=== PATIENT | female | born 1990 | race Caucasian/White ===

== ENCOUNTER 2017-12-05 01:31 | Inpatient (IN) ==
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
[2017-12-05 02:17] LABS: Basophils % 0.5 %; Eosinophils # 0.1 K/mcL (0.0-0.6); Eosinophils % 1.7 %; Hematocrit 36.6 % (35.3-44.9); Hemoglobin 12.6 g/dL (11.5-15.4); Immature Granulocytes % 0.4 % (0-4); Lymphocytes # 3.2 K/mcL (0.6-4.6); Lymphocytes % 41.9 %; Mean Corpuscular HGB Conc 34.4 g/dL (31.6-35.5); Mean Corpuscular Hemoglobin 31.8 pg (28.0-33.3); Mean Corpuscular Volume 92.4 fL (83.0-100.0); Mean Platelet Volume 9.8 fL (9.4-12.4); Monocytes # 0.4 K/mcL (0.0-1.3); Neutrophils # 3.9 K/mcL (1.6-8.9); Platelet Count 288 K/mcL (140-400); Red Blood Count 3.96 M/mcL (3.82-4.97); Segmented Neutrophils % 50.5 %
[2017-12-05 02:28] LABS: Alanine Aminotransferase 22 Units/L (7-52); Albumin 4.5 g/dL (3.5-5.7); Albumin/Globulin Ratio 1.7 (1.1-2.2); Alkaline Phosphatase 75 Units/L (34-104); Aspartate Amino Transferase 18 Units/L (13-39); BUN/Creatinine Ratio 9 (6-26); Bilirubin,Total 0.4 mg/dL (0.3-1.0); Blood Urea Nitrogen 6 mg/dL (6-20); Calcium 9.3 mg/dL (8.6-10.3); Carbon Dioxide 23 mEq/L (23-29); Chloride 107 mEq/L (98-107); Ethanol 173 mg/dL (Less than 10); Globulin 2.6 g/dL (2.4-3.5); Glucose 88 mg/dL (70-105); Osmolality,Calculated 287 (280-300); Potassium 3.7 mEq/L (3.5-5.1); Sodium 140 mEq/L (136-145); Total Protein 7.1 g/dL (6.4-8.9); eGFR For Non-African Americans > 60 (> 60)
[2017-12-05 03:06] LABS: Acetaminophen < 10 mcg/mL (10-20); Salicylate < 2.5 mg/dL (15.0-30.0)
[2017-12-05 04:39] LABS: Amphetamine Screen,Urine Negative ng/mL (Cutoff=1000); Barbiturate Screen,Urine Negative ng/mL (Cutoff=200); Benzodiazepines Screen,Urine Positive ng/mL (Cutoff=200); Cannabinoid Screen,Urine Negative ng/mL (Cutoff = 50); Cocaine Screen,Urine Negative ng/mL (Cutoff= 300); Opiate Screen,Urine Negative ng/mL (Cutoff=300); Phencyclidine Screen,Urine Negative ng/mL (Cutoff=25)
[2017-12-05] MEDS ORDERED: Ibuprofen 400 MG TABLET PO ONE (06:43)
[2017-12-05 07:06] LABS: Bilirubin,Urine Negative (Negative); Blood,Urine Negative (Negative); Clarity,Urine Cloudy (Clear); Color,Urine Yellow (Yellow); Glucose,Urine (UA) Normal (Normal); Ketones,Urine Negative (Negative); Leukocyte Esterase,Urine Small (Negative); Nitrite,Urine Negative (Negative); Protein,Urine Negative (Neg-Trace); Specific Gravity,Urine 1.006 (1.010-1.025); Urobilinogen,Urine Normal (Normal)
[2017-12-05 07:09] LABS: Bacteria,Urine Few per hpf (None-Few); Hyaline Casts,Urine Few per lpf (None-Few); RBC,Urine 0-3 per hpf (0-3); Squamous Epithelial Cell,Urine Many per lpf (None-Few)
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
[2017-12-05] MEDS ORDERED: MOM Conc 10 ML UD.LIQ PO PRN (12:56)
[2017-12-05] MEDS ORDERED: *HR* LORazepam 2 MG/ML VIAL IM PRN (12:56)
[2017-12-05] MEDS ORDERED: Mag Hydrox/Al Hydrox/Simeth 30 ML UDC PO PRN (12:56)
[2017-12-05] MEDS ORDERED: Haloperidol Lactate 5 MG/ML VIAL IM PRN (12:56)
[2017-12-05] MEDS ORDERED: Nicotine 21 MG PATCH.TD24 TD SCH (13:00)
[2017-12-05] MEDS: Nicotine 2 MG GUM BC PRN ×2 (17:08→20:57)
[2017-12-05] MEDS: *HR* LORazepam 1 MG TABLET PO PRN (20:57)
[2017-12-05] MEDS: hydrOXYzine pamoate 25 MG CAPSULE PO PRN (20:57)
[2017-12-05] MEDS: Ibuprofen 400 MG TABLET PO PRN (20:57)
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
[2017-12-06] MEDS: Nicotine 2 MG GUM BC PRN ×4 (10:35→20:34)
[2017-12-06] MEDS: Venlafaxine XR (24 HR) 150 MG CAP.ER.24H PO SCH (11:01)
[2017-12-06] MEDS: Ibuprofen 400 MG TABLET PO PRN ×2 (11:01→21:27)
[2017-12-06] MEDS: Gabapentin 100 MG CAPSULE PO SCH ×2 (11:01→20:34)
[2017-12-06] MEDS: hydrOXYzine pamoate 25 MG CAPSULE PO PRN (20:34)
[2017-12-06] MEDS: *HR* LORazepam 1 MG TABLET PO PRN (20:34)
[2017-12-07] MEDS: Nicotine 2 MG GUM BC PRN ×3 (09:07→15:04)
[2017-12-07] MEDS: Gabapentin 100 MG CAPSULE PO SCH (09:07)
[2017-12-07] MEDS: Venlafaxine XR (24 HR) 150 MG CAP.ER.24H PO SCH (09:07)
[2017-12-07 09:17] VITALS: BP 112/71
[2017-12-07] MEDS: Ibuprofen 400 MG TABLET PO PRN (09:45)
--- NOTE | 2017-12-07 14:50 | Psychiatry Progress Note ---
Date of Encounter: 12/07/17 Results - Vital Signs Vital Signs: Temp Pulse Resp BP Pulse Ox 98.4 F 88 16 112/71 98 12/07/17 09:00 12/07/17 09:00 12/07/17 09:00 12/07/17 09:00 12/05/17 01:36 Consult Discharge Plan - Plan Referrals: [facility] [place] [Outside] - 02/24/18 9:00 am (The above appointment is with Yohana Ceballos for outpatient psychiatric assessment and medication management services. Please arrive 15 minutes early to complete paperwork. Please bring your insurance card, photo ID and medications in their original bottles. If you do not have insurance, bring proof of income to apply for the sliding fee scale. If you are unable to keep this appointment, 24 hour business notice of cancellation is expected. The above appointment(s) reflects first availability. You may contact the office regularly to check for cancellations that may allow you to be seen sooner.) [facility] [Outside] - 12/16/17 9:30 am (The above appointment is with Cara Sotelo for primary health care and medication management services.) [facility] [Outside] - 12/15/17 8:00 am (To enroll in services, please walk in on Thursday at 8:00am. Bring your photo ID and proof that your Medicaid is pending. After your assessment, you will receive follow-up for continued one on one, group counseling and/or IOP services based on your needs.) Psychiatry Exam - Constitutional Vitals: Temp Pulse Resp BP Pulse Ox 98.4 F 88 16 112/71 98 12/07/17 09:00 12/07/17 09:00 12/07/17 09:00 12/07/17 09:00 12/05/17 01:36
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
== END 2017-12-07 16:35 | disposition home or self-care (01) | DRG 751 ==
LOC: EMEROOARM 01:31 → 1ANU 01:31 → SUATTDRO 12-06 10:40
PROVIDERS: ADMIT Psychiatry & Neurology Psychiatry; ATTEND Psychiatry & Neurology Forensic Psychiatry

== ENCOUNTER 2020-04-10 11:45 | Observation (INO) ==
[2020-04-10] MEDS ORDERED: 0.9 % Sodium Chloride 1,000 ML IVC ONE ×2 (11:57→15:24)
[2020-04-10] MEDS ORDERED: Ondansetron 4 MG/2 ML VIAL IVP ONE (11:57)
[2020-04-10] MEDS ORDERED: Isovue-370 500 ML BOTTLE IVP ONE (12:13)
[2020-04-10] MEDS ORDERED: Multivit/Ca/Min/Fe/FA 1 TAB TABLET PO SCH (12:15)
[2020-04-10 12:47] LABS: Prothrombin Time 11.9 Seconds (9.4-12.1)
[2020-04-10 12:48] LABS: Basophils # 0.1 K/mcL (0.0-0.2); Basophils % 0.5 %; Eosinophils # 0.1 K/mcL (0.0-0.6); Eosinophils % 0.9 %; Hematocrit 42.3 % (35.3-44.9); Immature Granulocytes % 0.4 % (0-4); Lymphocytes # 1.5 K/mcL (0.6-4.6); Lymphocytes % 14.2 %; Mean Corpuscular HGB Conc 35.5 g/dL (31.6-35.5); Mean Corpuscular Hemoglobin 33.2 pg (28.0-33.3); Mean Corpuscular Volume 93.6 fL (83.0-100.0); Mean Platelet Volume 9.7 fL (9.4-12.4); Monocytes # 0.6 K/mcL (0.0-1.3); Monocytes % 5.2 %; Neutrophils # 8.4 K/mcL (1.6-8.9); Platelet Count 276 K/mcL (140-400); Red Blood Count 4.52 M/mcL (3.82-4.97); Red Cell Distribution Width 13.5 % (11.5-14.5); Segmented Neutrophils % 78.8 %; White Blood Count 10.6 K/mcL (4.3-11.1)
[2020-04-10 13:02] LABS: Acetaminophen < 10 mcg/mL (10-20); Ethanol < 10 mg/dL (Less than 10); Salicylate < 2.5 mg/dL (15.0-30.0)
[2020-04-10 13:04] LABS: Alanine Aminotransferase 47 Units/L (7-52); Albumin 4.2 g/dL (3.5-5.7); Albumin/Globulin Ratio 1.5 (1.1-2.2); Alkaline Phosphatase 87 Units/L (34-104); Aspartate Amino Transferase 57 Units/L (13-39); BUN/Creatinine Ratio 6 (6-26); Bilirubin,Direct 0.1 mg/dL (0.0-0.2); Bilirubin,Indirect 0.4 mg/dL (0.0-1.0); Bilirubin,Total 0.5 mg/dL (0.3-1.0); Blood Urea Nitrogen 5 mg/dL (6-20); Calcium 9.8 mg/dL (8.6-10.3); Carbon Dioxide 29 mEq/L (23-29); Chloride 100 mEq/L (98-107); Globulin 2.8 g/dL (2.4-3.5); Glucose 91 mg/dL (70-105); Lipase 232 Units/L (11-82); Osmolality,Calculated 281 (280-300); Potassium 3.3 mEq/L (3.5-5.1); Sodium 137 mEq/L (136-145); Troponin I < 0.03 ng/mL (< 0.04); eGFR For African Americans > 60 (> 60); eGFR For Non-African Americans > 60 (> 60)
[2020-04-10] MEDS ORDERED: *HR* LORazepam 2 MG/ML VIAL IVP ONE (13:12)
[2020-04-10 13:51] LABS: Bacteria,Urine Few per hpf (None-Few); Bilirubin,Urine Negative (Negative); Blood,Urine Negative (Negative); Clarity,Urine Turbid (Clear); Color,Urine Yellow (Yellow); Glucose,Urine (UA) Normal (Normal); Hyaline Casts,Urine Moderate per lpf (None Seen); Ketones,Urine Negative (Negative); Leukocyte Esterase,Urine Moderate (Negative); Mucus,Urine Many per lpf (None-Few); Nitrite,Urine Negative (Negative); PH,Urine 6.5 pH Units (5.0-8.0); Protein,Urine Trace mg/dL (Neg-Trace); Specific Gravity,Urine 1.011 (1.010-1.025); Squamous Epithelial Cell,Urine Moderate per hpf (None-Few); Urobilinogen,Urine Normal (Normal)
[2020-04-10 14:06] LABS: Amphetamine Screen,Urine Positive ng/mL (Cutoff=1000); Barbiturate Screen,Urine Negative ng/mL (Cutoff=200); Benzodiazepines Screen,Urine Negative ng/mL (Cutoff=200); Cannabinoid Screen,Urine Negative ng/mL (Cutoff = 50); Cocaine Screen,Urine Negative ng/mL (Cutoff= 300); Opiate Screen,Urine Negative ng/mL (Cutoff=300); Phencyclidine Screen,Urine Negative ng/mL (Cutoff=25)
[2020-04-10] MEDS ORDERED: Piperacillin/Tazobactam 3.375 GM in 0.9 % Sodium Chloride Mini Bag 100 ML IVPB ONE (14:09)
[2020-04-10] MEDS ORDERED: *HR* LORazepam 2 MG/ML VIAL IVP PRN ×2 (15:26)
[2020-04-10] MEDS ORDERED: Ondansetron 4 MG/2 ML VIAL IVP PRN (15:28)
[2020-04-10] MEDS ORDERED: Naloxone 0.4 MG/ML INJ IVP PRN (15:28)
[2020-04-10] MEDS ORDERED: 0.9 % Sodium Chloride 1,000 ML IVC SCH (15:30)
[2020-04-10] MEDS: Thiamine (B-1) 200 MG in 0.9 % Sodium Chloride 50 ML IVPB SCH (16:45)
[2020-04-10] MEDS: Folic Acid 1 MG in 0.9 % Sodium Chloride 50 ML IVPB SCH (18:03)
[2020-04-10] MEDS: *HR* LORazepam 2 MG/ML VIAL IVP PRN (20:17)
[2020-04-10] MEDS: Nicotine 14 MG PATCH.TD24 TD SCH (20:17)
[2020-04-11] MEDS: *HR* LORazepam 2 MG/ML VIAL IVP PRN (02:27)
[2020-04-11] MEDS: Piperacillin/Tazobactam 3.375 GM in 0.9 % Sodium Chloride Mini Bag 100 ML IVPB SCH ×2 (02:28→08:21)
[2020-04-11 03:47] LABS: Basophils % 0.6 %; Eosinophils # 0.3 K/mcL (0.0-0.6); Eosinophils % 3.9 %; Hematocrit 39.1 % (35.3-44.9); Immature Granulocytes % 0.5 % (0-4); Lymphocytes # 1.9 K/mcL (0.6-4.6); Lymphocytes % 29.4 %; Mean Corpuscular HGB Conc 33.2 g/dL (31.6-35.5); Mean Corpuscular Hemoglobin 31.9 pg (28.0-33.3); Mean Corpuscular Volume 95.8 fL (83.0-100.0); Mean Platelet Volume 9.7 fL (9.4-12.4); Monocytes # 0.4 K/mcL (0.0-1.3); Monocytes % 5.4 %; Neutrophils # 3.9 K/mcL (1.6-8.9); Nucleated Red Blood Cells 0.3 /100 WBC (0); Platelet Count 227 K/mcL (140-400); Red Blood Count 4.08 M/mcL (3.82-4.97); Red Cell Distribution Width 13.5 % (11.5-14.5); Segmented Neutrophils % 60.2 %; White Blood Count 6.5 K/mcL (4.3-11.1)
[2020-04-11 03:54] LABS: Prothrombin Time 11.4 Seconds (9.4-12.1)
[2020-04-11 04:05] LABS: Chol/HDL Ratio 1.9 (0-4.9)
[2020-04-11 04:06] LABS: Alanine Aminotransferase 34 Units/L (7-52); Albumin 3.6 g/dL (3.5-5.7); Albumin/Globulin Ratio 1.6 (1.1-2.2); Alkaline Phosphatase 75 Units/L (34-104); Aspartate Amino Transferase 38 Units/L (13-39); BUN/Creatinine Ratio 11 (6-26); Bilirubin,Direct 0.1 mg/dL (0.0-0.2); Bilirubin,Indirect 0.6 mg/dL (0.0-1.0); Bilirubin,Total 0.7 mg/dL (0.3-1.0); Blood Urea Nitrogen 10 mg/dL (6-20); Calcium 8.5 mg/dL (8.6-10.3); Carbon Dioxide 27 mEq/L (23-29); Chloride 105 mEq/L (98-107); Globulin 2.2 g/dL (2.4-3.5); Glucose 93 mg/dL (70-105); Magnesium 1.5 mg/dL (1.6-2.6); Osmolality,Calculated 283 (280-300); Phosphorous 3.4 mg/dL (2.7-4.5); Potassium 3.4 mEq/L (3.5-5.1); Sodium 137 mEq/L (136-145); Total Protein 5.8 g/dL (6.4-8.9); eGFR For African Americans > 60 (> 60); eGFR For Non-African Americans > 60 (> 60)
[2020-04-11] MEDS ORDERED: Isovue-370 500 ML BOTTLE IVP ONE (05:22)
[2020-04-11] MEDS ORDERED: *HR* HYDROmorphone (PF) 1 MG/ML SYRINGE IVP ONE (05:25)
[2020-04-11] MEDS ORDERED: Ringers Solution, Lactated 1,000 ML IVC SCH (05:30)
[2020-04-11] MEDS: Nicotine 14 MG PATCH.TD24 TD SCH (08:20)
[2020-04-11] MEDS: Folic Acid 1 MG in 0.9 % Sodium Chloride 50 ML IVPB SCH (08:20)
[2020-04-11] MEDS: Thiamine (B-1) 200 MG in 0.9 % Sodium Chloride 50 ML IVPB SCH (08:22)
[2020-04-11] MEDS ORDERED: Magnesium Sulfate 1 GM/102 ML PIGGYBACK IVPB ONE (08:28)
[2020-04-11 10:38] VITALS: BP 140/88
== END 2020-04-11 12:10 | disposition short-term general hospital (02) ==
LOC: EMEROOARM 11:45 → 3BNU 11:45
PROVIDERS: ADMIT Internal Medicine; ATTEND Internal Medicine

== ENCOUNTER 2021-01-09 19:09 | Inpatient (IN) ==
[2021-01-09 21:36] LABS: Hematocrit 31.5 % (35.3-44.9); Hemoglobin 10.9 g/dL (11.5-15.4); Mean Corpuscular HGB Conc 34.6 g/dL (31.6-35.5); Mean Corpuscular Hemoglobin 30.7 pg (28.0-33.3); Mean Corpuscular Volume 88.7 fL (83.0-100.0); Mean Platelet Volume 9.6 fL (9.4-12.4); Platelet Count 363 K/mcL (140-400); Red Blood Count 3.55 M/mcL (3.82-4.97); Red Cell Distribution Width 12.2 % (11.5-14.5); White Blood Count 21.4 K/mcL (4.3-11.1)
[2021-01-09 21:50] LABS: BUN/Creatinine Ratio 8 (6-26); Blood Urea Nitrogen 5 mg/dL (6-20); Calcium 8.6 mg/dL (8.6-10.3); Carbon Dioxide 26 mEq/L (23-29); Chloride 100 mEq/L (98-107); Glucose 97 mg/dL (70-105); Osmolality,Calculated 279 (280-300); Potassium 2.7 mEq/L (3.5-5.1); Sodium 136 mEq/L (136-145); eGFR For African Americans > 60 (> 60); eGFR For Non-African Americans > 60 (> 60)
[2021-01-09] MEDS ORDERED: Vancomycin 1,500 MG/265 ML IV.SOLN IVPB ONE (22:45)
[2021-01-09] MEDS ORDERED: 0.9 % Sodium Chloride 1,000 ML IVC ONE (22:48)
[2021-01-09] MEDS ORDERED: *HR* LORazepam 2 MG/ML VIAL IVP ONE (22:48)
[2021-01-09 22:58] LABS: Alanine Aminotransferase 13 Units/L (7-52); Albumin 3.8 g/dL (3.5-5.7); Albumin/Globulin Ratio 1.3 (1.1-2.2); Alkaline Phosphatase 103 Units/L (34-104); Aspartate Amino Transferase 14 Units/L (13-39); Bilirubin,Indirect 0.3 mg/dL (0.0-1.0); Bilirubin,Total 0.3 mg/dL (0.3-1.0); Total Protein 6.8 g/dL (6.4-8.9)
[2021-01-09] MEDS ORDERED: Cefepime HCl 1,000 MG in Water for inj. (sterile) 10 ML IVP ONE (23:00)
[2021-01-10 00:17] LABS: Bacteria,Urine Few per hpf (None-Few); Bilirubin,Urine Negative (Negative); Blood,Urine Negative (Negative); Clarity,Urine Turbid (Clear); Color,Urine Yellow (Yellow); Glucose,Urine (UA) Normal (Normal); Ketones,Urine Negative (Negative); Leukocyte Esterase,Urine Large (Negative); Mucus,Urine Few per lpf (None-Few); Nitrite,Urine Negative (Negative); PH,Urine 6.5 pH Units (5.0-8.0); Protein,Urine 30 mg/dL (Neg-Trace); RBC,Urine 0-3 per hpf (0-3); Specific Gravity,Urine 1.023 (1.010-1.025); Squamous Epithelial Cell,Urine Moderate per hpf (None-Few); Urobilinogen,Urine Normal (Normal)
[2021-01-10 00:46] LABS: Magnesium 1.4 mg/dL (1.6-2.6)
[2021-01-10] MEDS ORDERED: 0.9 % Sodium Chloride 1,000 ML IVC ONE (01:12)
[2021-01-10] MEDS ORDERED: Ondansetron 4 MG/2 ML VIAL IVP PRN (01:29)
[2021-01-10] MEDS ORDERED: Naloxone 0.4 MG/ML INJ IVP PRN (01:29)
[2021-01-10] MEDS: *HR* LORazepam 2 MG/ML VIAL IVP PRN ×7 (02:33→23:39)
[2021-01-10] MEDS ORDERED: 0.9 % Sodium Chloride 500 ML IVC ONE ×2 (03:01→14:56)
[2021-01-10] MEDS ORDERED: Ringers Solution, Lactated 1,000 ML IVC ONE (03:02)
[2021-01-10 05:20] LABS: Eosinophils % 0.6 %; Mean Platelet Volume 9.8 fL (9.4-12.4); Red Cell Distribution Width 12.4 % (11.5-14.5)
[2021-01-10 05:21] LABS: Basophils # 0.1 K/mcL (0.0-0.2); Basophils % 0.2 %; Eosinophils # 0.2 K/mcL (0.0-0.6); Hematocrit 27.5 % (35.3-44.9); Hemoglobin 9.3 g/dL (11.5-15.4); Immature Granulocytes % 0.5 % (0-4); Lymphocytes % 11.4 %; Mean Corpuscular HGB Conc 33.8 g/dL (31.6-35.5); Mean Corpuscular Hemoglobin 30.7 pg (28.0-33.3); Mean Corpuscular Volume 90.8 fL (83.0-100.0); Monocytes % 5.5 %; Neutrophils # 21.5 K/mcL (1.6-8.9); Platelet Count 341 K/mcL (140-400); Red Blood Count 3.03 M/mcL (3.82-4.97); Segmented Neutrophils % 81.8 %; White Blood Count 26.3 K/mcL (4.3-11.1)
[2021-01-10 05:25] LABS: Monocytes # 1.5 K/mcL (0.0-1.3)
[2021-01-10 05:38] LABS: Alanine Aminotransferase 9 Units/L (7-52); Albumin 2.8 g/dL (3.5-5.7); Albumin/Globulin Ratio 1.2 (1.1-2.2); Alkaline Phosphatase 79 Units/L (34-104); Aspartate Amino Transferase 10 Units/L (13-39); BUN/Creatinine Ratio 17 (6-26); Bilirubin,Total 0.5 mg/dL (0.3-1.0); Blood Urea Nitrogen 9 mg/dL (6-20); Calcium 7.4 mg/dL (8.6-10.3); Carbon Dioxide 25 mEq/L (23-29); Chloride 109 mEq/L (98-107); Globulin 2.4 g/dL (2.4-3.5); Glucose 122 mg/dL (70-105); Magnesium 1.4 mg/dL (1.6-2.6); Osmolality,Calculated 288 (280-300); Phosphorous 2.1 mg/dL (2.7-4.5); Potassium 3.3 mEq/L (3.5-5.1); Sodium 139 mEq/L (136-145); Total Protein 5.2 g/dL (6.4-8.9); eGFR For African Americans > 60 (> 60); eGFR For Non-African Americans > 60 (> 60)
[2021-01-10] MEDS: *HR* Enoxaparin 40 MG/0.4 ML SYRINGE SQ SCH (05:43)
[2021-01-10 05:44] LABS: Platelet Estimate Normal (Normal)
[2021-01-10] MEDS: Piperacillin/Tazobactam 3.375 GM in 0.9 % Sodium Chloride Mini Bag 100 ML IVPB SCH ×2 (07:47→18:35)
[2021-01-10] MEDS ORDERED: Acetaminophen 325 MG TABLET PO PRN (08:27)
[2021-01-10] MEDS: 0.9 % Sodium Chloride 1,000 ML IVC SCH (10:54)
[2021-01-10] MEDS: Magnesium Oxide 400 MG TABLET PO SCH (10:55)
[2021-01-10] MEDS: Vancomycin 1,500 MG/265 ML IV.SOLN IVPB SCH (13:28)
[2021-01-10] MEDS ORDERED: 0.9 % Sodium Chloride 250 ML ONE (21:17)
[2021-01-10] MEDS: Dexmedetomidine HCl 400 MCG/100 ML MLS IVC SCH (21:33)
[2021-01-11] MEDS: Thiamine (B-1) 100 MG, Folic Acid 1 MG, MVI, adult with vitamin K 10 ML in 0.9 % Sodi... IVPB SCH ×2 (00:03→17:29)
[2021-01-11] MEDS: 0.9 % Sodium Chloride 1,000 ML IVC SCH (00:47)
[2021-01-11] MEDS: Piperacillin/Tazobactam 3.375 GM in 0.9 % Sodium Chloride Mini Bag 100 ML IVPB SCH ×4 (00:48→23:37)
[2021-01-11] MEDS: Vancomycin 1,500 MG/265 ML IV.SOLN IVPB SCH ×3 (02:21→23:37)
[2021-01-11] MEDS: Dexmedetomidine HCl 400 MCG/100 ML MLS IVC SCH ×3 (02:43→14:25)
[2021-01-11 05:42] LABS: Basophils # 0.1 K/mcL (0.0-0.2); Basophils % 0.4 %; Eosinophils # 0.5 K/mcL (0.0-0.6); Eosinophils % 3.4 %; Hemoglobin 8.7 g/dL (11.5-15.4); Immature Granulocytes % 0.7 % (0-4); Lymphocytes # 3.3 K/mcL (0.6-4.6); Mean Corpuscular HGB Conc 33.5 g/dL (31.6-35.5); Mean Corpuscular Volume 92.5 fL (83.0-100.0); Mean Platelet Volume 9.8 fL (9.4-12.4); Monocytes # 0.5 K/mcL (0.0-1.3); Monocytes % 3.6 %; Neutrophils # 9.3 K/mcL (1.6-8.9); Platelet Count 315 K/mcL (140-400); Red Blood Count 2.81 M/mcL (3.82-4.97); Red Cell Distribution Width 12.6 % (11.5-14.5); Segmented Neutrophils % 67.9 %; White Blood Count 13.7 K/mcL (4.3-11.1)
[2021-01-11] MEDS: *HR* Enoxaparin 40 MG/0.4 ML SYRINGE SQ SCH (05:44)
[2021-01-11 06:03] LABS: BUN/Creatinine Ratio 20 (6-26); Blood Urea Nitrogen 11 mg/dL (6-20); Calcium 7.8 mg/dL (8.6-10.3); Carbon Dioxide 24 mEq/L (23-29); Chloride 110 mEq/L (98-107); Glucose 136 mg/dL (70-105); Magnesium 1.7 mg/dL (1.6-2.6); Osmolality,Calculated 289 (280-300); Phosphorous 2.4 mg/dL (2.7-4.5); Potassium 3.6 mEq/L (3.5-5.1); Sodium 139 mEq/L (136-145); eGFR For African Americans > 60 (> 60); eGFR For Non-African Americans > 60 (> 60)
[2021-01-11] MEDS: Magnesium Oxide 400 MG TABLET PO SCH (09:41)
[2021-01-11 11:59] LABS: Adenovirus Not Detected (Not Detect); Coronavirus 229E Not Detected (Not Detect); Coronavirus HKU1 Not Detected (Not Detect); Coronavirus NL63 Not Detected (Not Detect); Coronavirus OC43 Not Detected (Not Detect); Human Metapneumovirus Not Detected (Not Detect); Human Rhinovirus/Enterovirus DETECTED (Not Detect); Influenza A Subtype 2009 H1 Not Detected (Not Detect); Influenza B Not Detected (Not Detect); Parainfluenza Virus 1 Not Detected (Not Detect); Parainfluenza Virus 2 Not Detected (Not Detect); Parainfluenza Virus 3 Not Detected (Not Detect); Parainfluenza Virus 4 Not Detected (Not Detect); Respiratory Syncytial Virus Not Detected (Not Detect); SARS-CoV-2 Not Detected (Not Detect)
[2021-01-11 12:00] LABS: Bordetella Pertussis Not Detected (Not Detect); Chlamydophila pneumoniae Not Detected (Not Detect); Mycoplasma pneumoniae Not Detected (Not Detect)
[2021-01-11 13:20] LABS: Amphetamine Screen,Urine Positive ng/mL (Cutoff=1000); Barbiturate Screen,Urine Negative ng/mL (Cutoff=200); Benzodiazepines Screen,Urine Positive ng/mL (Cutoff=200); Cannabinoid Screen,Urine Negative ng/mL (Cutoff = 50); Cocaine Screen,Urine Negative ng/mL (Cutoff= 300); Opiate Screen,Urine Negative ng/mL (Cutoff=300); Phencyclidine Screen,Urine Negative ng/mL (Cutoff=25)
[2021-01-11] MEDS: Nicotine 21 MG PATCH.TD24 TD SCH (13:48)
[2021-01-11] MEDS: Acetaminophen 325 MG TABLET PO PRN ×2 (14:30→23:37)
[2021-01-11] MEDS: *HR* LORazepam 2 MG/ML VIAL IVP PRN ×2 (14:31→21:51)
[2021-01-11] MEDS: *HR* OxyCODONE/APAP 5/325 TABLET PO PRN (17:28)
[2021-01-11] MEDS: Gabapentin 400 MG CAPSULE PO SCH (21:16)
[2021-01-11] MEDS: rOPINIRole 1 MG TABLET PO SCH (21:16)
[2021-01-12] MEDS: Dexmedetomidine HCl 400 MCG/100 ML MLS IVC SCH ×2 (00:56→17:18)
[2021-01-12 05:22] LABS: Basophils # 0.1 K/mcL (0.0-0.2); Basophils % 0.5 %; Eosinophils # 0.4 K/mcL (0.0-0.6); Eosinophils % 3.8 %; Hematocrit 25.9 % (35.3-44.9); Hemoglobin 8.4 g/dL (11.5-15.4); Immature Granulocytes % 0.8 % (0-4); Lymphocytes # 2.1 K/mcL (0.6-4.6); Lymphocytes % 22.5 %; Mean Corpuscular HGB Conc 32.4 g/dL (31.6-35.5); Mean Corpuscular Volume 92.5 fL (83.0-100.0); Mean Platelet Volume 10.3 fL (9.4-12.4); Monocytes # 0.5 K/mcL (0.0-1.3); Monocytes % 5.8 %; Neutrophils # 6.1 K/mcL (1.6-8.9); Platelet Count 353 K/mcL (140-400); Red Cell Distribution Width 12.7 % (11.5-14.5); Segmented Neutrophils % 66.6 %; White Blood Count 9.2 K/mcL (4.3-11.1)
[2021-01-12 05:36] LABS: BUN/Creatinine Ratio 11 (6-26); Blood Urea Nitrogen 10 mg/dL (6-20); Calcium 7.9 mg/dL (8.6-10.3); Carbon Dioxide 25 mEq/L (23-29); Chloride 109 mEq/L (98-107); Glucose 94 mg/dL (70-105); Magnesium 1.7 mg/dL (1.6-2.6); Osmolality,Calculated 287 (280-300); Phosphorous 3.8 mg/dL (2.7-4.5); Potassium 3.4 mEq/L (3.5-5.1); Sodium 139 mEq/L (136-145); eGFR For African Americans > 60 (> 60); eGFR For Non-African Americans > 60 (> 60)
[2021-01-12] MEDS: *HR* Enoxaparin 40 MG/0.4 ML SYRINGE SQ SCH (05:50)
[2021-01-12] MEDS: Nicotine 21 MG PATCH.TD24 TD SCH (07:36)
[2021-01-12] MEDS: BuPROPion XL (24 HR) 150 MG TABLET PO SCH (07:36)
[2021-01-12] MEDS: Gabapentin 400 MG CAPSULE PO SCH ×3 (07:36→20:12)
[2021-01-12] MEDS: rOPINIRole 1 MG TABLET PO SCH ×2 (07:37→20:11)
[2021-01-12] MEDS: Magnesium Oxide 400 MG TABLET PO SCH (07:37)
[2021-01-12] MEDS: Piperacillin/Tazobactam 3.375 GM in 0.9 % Sodium Chloride Mini Bag 100 ML IVPB SCH ×3 (07:37→23:44)
[2021-01-12] MEDS: Venlafaxine XR (24 HR) 150 MG CAP.ER.24H PO SCH (07:37)
[2021-01-12] MEDS: Acetaminophen 325 MG TABLET PO PRN (07:37)
[2021-01-12] MEDS: Vancomycin 1,500 MG/265 ML IV.SOLN IVPB SCH (11:29)
[2021-01-12] MEDS: *HR* OxyCODONE/APAP 5/325 TABLET PO PRN (14:40)
[2021-01-12] MEDS: Thiamine (B-1) 100 MG, Folic Acid 1 MG, MVI, adult with vitamin K 10 ML in 0.9 % Sodi... IVPB SCH (17:13)
[2021-01-12] MEDS: *HR* LORazepam 2 MG/ML VIAL IVP PRN (20:12)
[2021-01-13] MEDS: Vancomycin 1,250 MG/262.5 ML IV.SOLN IVPB SCH ×2 (00:04→12:18)
[2021-01-13] MEDS: *HR* OxyCODONE/APAP 5/325 TABLET PO PRN ×2 (02:22→13:23)
[2021-01-13] MEDS: *HR* LORazepam 2 MG/ML VIAL IVP PRN ×3 (03:46→22:34)
[2021-01-13 04:31] LABS: Basophils # 0.1 K/mcL (0.0-0.2); Basophils % 0.7 %; Eosinophils # 0.3 K/mcL (0.0-0.6); Eosinophils % 4.5 %; Hematocrit 25.6 % (35.3-44.9); Hemoglobin 8.3 g/dL (11.5-15.4); Immature Granulocytes % 0.9 % (0-4); Lymphocytes # 2.4 K/mcL (0.6-4.6); Lymphocytes % 31.8 %; Mean Corpuscular HGB Conc 32.4 g/dL (31.6-35.5); Mean Corpuscular Hemoglobin 30.4 pg (28.0-33.3); Mean Corpuscular Volume 93.8 fL (83.0-100.0); Mean Platelet Volume 10.2 fL (9.4-12.4); Monocytes # 0.4 K/mcL (0.0-1.3); Monocytes % 5.6 %; Neutrophils # 4.3 K/mcL (1.6-8.9); Platelet Count 321 K/mcL (140-400); Red Blood Count 2.73 M/mcL (3.82-4.97); Red Cell Distribution Width 12.8 % (11.5-14.5); Segmented Neutrophils % 56.5 %; White Blood Count 7.6 K/mcL (4.3-11.1)
[2021-01-13 04:51] LABS: BUN/Creatinine Ratio 9 (6-26); Blood Urea Nitrogen 10 mg/dL (6-20); Carbon Dioxide 25 mEq/L (23-29); Chloride 108 mEq/L (98-107); Glucose 127 mg/dL (70-105); Magnesium 1.7 mg/dL (1.6-2.6); Osmolality,Calculated 287 (280-300); Phosphorous 3.6 mg/dL (2.7-4.5); Potassium 3.6 mEq/L (3.5-5.1); Sodium 138 mEq/L (136-145); eGFR For African Americans > 60 (> 60); eGFR For Non-African Americans 56 (> 60)
[2021-01-13] MEDS: *HR* Enoxaparin 40 MG/0.4 ML SYRINGE SQ SCH (06:02)
[2021-01-13] MEDS: Dexmedetomidine HCl 400 MCG/100 ML MLS IVC SCH (09:06)
[2021-01-13] MEDS: Piperacillin/Tazobactam 3.375 GM in 0.9 % Sodium Chloride Mini Bag 100 ML IVPB SCH ×2 (09:08→16:07)
[2021-01-13] MEDS: rOPINIRole 1 MG TABLET PO SCH ×2 (09:09→20:16)
[2021-01-13] MEDS: Venlafaxine XR (24 HR) 150 MG CAP.ER.24H PO SCH (09:09)
[2021-01-13] MEDS: Gabapentin 400 MG CAPSULE PO SCH ×3 (09:09→20:16)
[2021-01-13] MEDS: BuPROPion XL (24 HR) 150 MG TABLET PO SCH (09:09)
[2021-01-13] MEDS: Magnesium Oxide 400 MG TABLET PO SCH (09:10)
[2021-01-13] MEDS: Nicotine 21 MG PATCH.TD24 TD SCH (09:11)
[2021-01-13] MEDS ORDERED: Isovue-370 500 ML BOTTLE IVP ONE (09:58)
[2021-01-13] MEDS ORDERED: 0.9 % Sodium Chloride 1,000 ML IVC SCH (11:00)
[2021-01-13] MEDS ORDERED: QUEtiapine Fumarate 25 MG TABLET PO SCH (21:00)
[2021-01-14] MEDS: Piperacillin/Tazobactam 3.375 GM in 0.9 % Sodium Chloride Mini Bag 100 ML IVPB SCH ×4 (00:32→23:34)
[2021-01-14] MEDS: Vancomycin 1,250 MG/262.5 ML IV.SOLN IVPB SCH (01:15)
[2021-01-14] MEDS: Dexmedetomidine HCl 400 MCG/100 ML MLS IVC SCH (01:47)
[2021-01-14] MEDS: *HR* OxyCODONE/APAP 5/325 TABLET PO PRN ×3 (04:05→23:34)
[2021-01-14] MEDS: *HR* Enoxaparin 40 MG/0.4 ML SYRINGE SQ SCH (04:05)
[2021-01-14 05:03] LABS: BUN/Creatinine Ratio 8 (6-26); Blood Urea Nitrogen 9 mg/dL (6-20); Calcium 8.3 mg/dL (8.6-10.3); Carbon Dioxide 26 mEq/L (23-29); Chloride 107 mEq/L (98-107); Glucose 95 mg/dL (70-105); Osmolality,Calculated 286 (280-300); Potassium 3.6 mEq/L (3.5-5.1); Sodium 139 mEq/L (136-145); eGFR For African Americans > 60 (> 60); eGFR For Non-African Americans 58 (> 60)
[2021-01-14] MEDS ORDERED: Vancomycin 1,500 MG/265 ML IV.SOLN IVPB SCH (06:00)
[2021-01-14] MEDS: Magnesium Oxide 400 MG TABLET PO SCH (08:07)
[2021-01-14] MEDS: Gabapentin 400 MG CAPSULE PO SCH ×3 (08:07→19:34)
[2021-01-14] MEDS: Venlafaxine XR (24 HR) 150 MG CAP.ER.24H PO SCH (08:07)
[2021-01-14] MEDS: rOPINIRole 1 MG TABLET PO SCH ×2 (08:08→19:35)
[2021-01-14] MEDS: BuPROPion XL (24 HR) 150 MG TABLET PO SCH (08:08)
[2021-01-14] MEDS: Nicotine 21 MG PATCH.TD24 TD SCH (08:15)
[2021-01-14] MEDS ORDERED: *HR* FentaNYL (PF) 100 MCG/2 ML VIAL ONE (10:05)
[2021-01-14] MEDS ORDERED: *HR* Midazolam HCl 2 MG/2 ML VIAL ONE (10:06)
[2021-01-14] MEDS ORDERED: Lidocaine -MPF 2% 5 ML VIAL ONE (10:06)
[2021-01-14] MEDS ORDERED: Ondansetron 4 MG/2 ML VIAL ONE (10:09)
[2021-01-14] MEDS ORDERED: Naloxone 0.4 MG/ML INJ IVP PRN ×3 (11:01→12:52)
[2021-01-14] MEDS ORDERED: Ondansetron 4 MG/2 ML VIAL IVP PRN ×2 (11:01→12:52)
[2021-01-14] MEDS ORDERED: *HR* HYDROmorphone PF 0.5 MG/0.5 ML SYRINGE IVP PRN ×2 (11:01→12:52)
[2021-01-14] MEDS ORDERED: Albuterol 2.5 MG/3 ML NEBULIZER IH PRN ×2 (11:01→12:52)
[2021-01-14] MEDS ORDERED: *HR* FentaNYL (PF) 100 MCG/2 ML VIAL IVP PRN ×2 (11:01→12:52)
[2021-01-14] MEDS ORDERED: Nitroglycerin 0.4 MG TAB.SUBL SL PRN ×2 (11:01→12:52)
[2021-01-14] MEDS ORDERED: Ketamine *HR* 500 MG/10 ML MDV ONE (11:09)
[2021-01-14] MEDS ORDERED: Lidocaine 1% 0 ML ONE (12:08)
[2021-01-14] MEDS ORDERED: Dexmedetomidine HCl 400 MCG/100 ML MLS IVC SCH (12:52)
[2021-01-14] MEDS ORDERED: *HR* LORazepam 2 MG/ML VIAL IVP PRN ×2 (12:52)
[2021-01-14] MEDS ORDERED: Acetaminophen 325 MG TABLET PO PRN (12:52)
[2021-01-14] MEDS: Ondansetron 4 MG/2 ML VIAL IVP PRN (13:34)
[2021-01-14] MEDS: *HR* LORazepam 2 MG/ML VIAL IVP PRN (19:35)
[2021-01-14] MEDS: QUEtiapine Fumarate 25 MG TABLET PO SCH (19:35)
[2021-01-15] MEDS: *HR* LORazepam 2 MG/ML VIAL IVP PRN ×3 (02:45→22:06)
[2021-01-15 03:34] LABS: BUN/Creatinine Ratio 9 (6-26); Blood Urea Nitrogen 10 mg/dL (6-20); Calcium 8.3 mg/dL (8.6-10.3); Carbon Dioxide 27 mEq/L (23-29); Chloride 105 mEq/L (98-107); Glucose 154 mg/dL (70-105); Osmolality,Calculated 294 (280-300); Potassium 3.4 mEq/L (3.5-5.1); Sodium 141 mEq/L (136-145); eGFR For African Americans > 60 (> 60); eGFR For Non-African Americans 55 (> 60)
[2021-01-15] MEDS: Vancomycin 1,500 MG/265 ML IV.SOLN IVPB SCH (06:33)
[2021-01-15] MEDS: *HR* Enoxaparin 40 MG/0.4 ML SYRINGE SQ SCH (06:33)
[2021-01-15] MEDS: Piperacillin/Tazobactam 3.375 GM in 0.9 % Sodium Chloride Mini Bag 100 ML IVPB SCH ×3 (07:48→22:08)
[2021-01-15] MEDS: Venlafaxine XR (24 HR) 150 MG CAP.ER.24H PO SCH (07:48)
[2021-01-15] MEDS: Gabapentin 400 MG CAPSULE PO SCH ×3 (07:48→20:26)
[2021-01-15] MEDS: BuPROPion XL (24 HR) 150 MG TABLET PO SCH (07:48)
[2021-01-15] MEDS: Nicotine 21 MG PATCH.TD24 TD SCH (07:48)
[2021-01-15] MEDS: rOPINIRole 1 MG TABLET PO SCH ×2 (07:48→21:30)
[2021-01-15] MEDS: Magnesium Oxide 400 MG TABLET PO SCH (07:49)
[2021-01-15] MEDS: *HR* OxyCODONE/APAP 5/325 TABLET PO PRN ×2 (07:49→14:54)
[2021-01-15] MEDS: QUEtiapine Fumarate 25 MG TABLET PO SCH (20:26)
[2021-01-16] MEDS: *HR* OxyCODONE/APAP 5/325 TABLET PO PRN ×2 (01:25→11:44)
[2021-01-16] MEDS: *HR* LORazepam 2 MG/ML VIAL IVP PRN ×3 (05:18→18:02)
[2021-01-16] MEDS: *HR* Enoxaparin 40 MG/0.4 ML SYRINGE SQ SCH (05:19)
[2021-01-16] MEDS: Vancomycin 1,500 MG/265 ML IV.SOLN IVPB SCH (05:19)
[2021-01-16 06:17] LABS: BUN/Creatinine Ratio 9 (6-26); Blood Urea Nitrogen 10 mg/dL (6-20); Calcium 8.9 mg/dL (8.6-10.3); Carbon Dioxide 31 mEq/L (23-29); Chloride 102 mEq/L (98-107); Glucose 120 mg/dL (70-105); Osmolality,Calculated 288 (280-300); Potassium 3.7 mEq/L (3.5-5.1); Sodium 139 mEq/L (136-145); Vancomycin,Trough 8 mcg/mL (5-10); eGFR For African Americans > 60 (> 60); eGFR For Non-African Americans 57 (> 60)
[2021-01-16 06:23] LABS: Basophils # 0.1 K/mcL (0.0-0.2); Basophils % 0.8 %; Eosinophils # 0.3 K/mcL (0.0-0.6); Eosinophils % 3.6 %; Hematocrit 29.3 % (35.3-44.9); Hemoglobin 9.7 g/dL (11.5-15.4); Immature Granulocytes % 1.4 % (0-4); Lymphocytes # 2.7 K/mcL (0.6-4.6); Lymphocytes % 30.2 %; Mean Corpuscular HGB Conc 33.1 g/dL (31.6-35.5); Mean Corpuscular Hemoglobin 31.1 pg (28.0-33.3); Mean Corpuscular Volume 93.9 fL (83.0-100.0); Monocytes # 0.4 K/mcL (0.0-1.3); Neutrophils # 5.2 K/mcL (1.6-8.9); Platelet Count 369 K/mcL (140-400); Red Blood Count 3.12 M/mcL (3.82-4.97); Red Cell Distribution Width 12.6 % (11.5-14.5); White Blood Count 8.8 K/mcL (4.3-11.1)
[2021-01-16] MEDS: Magnesium Oxide 400 MG TABLET PO SCH (09:21)
[2021-01-16] MEDS: BuPROPion XL (24 HR) 150 MG TABLET PO SCH (09:22)
[2021-01-16] MEDS: rOPINIRole 1 MG TABLET PO SCH (09:22)
[2021-01-16] MEDS: Venlafaxine XR (24 HR) 150 MG CAP.ER.24H PO SCH (09:22)
[2021-01-16] MEDS: Nicotine 21 MG PATCH.TD24 TD SCH (09:22)
[2021-01-16] MEDS: Gabapentin 400 MG CAPSULE PO SCH ×2 (09:22→14:45)
[2021-01-16] MEDS: Piperacillin/Tazobactam 3.375 GM in 0.9 % Sodium Chloride Mini Bag 100 ML IVPB SCH ×2 (09:22→16:21)
[2021-01-16 09:24] VITALS: PULSE 73
[2021-01-16 13:12] VITALS: BP 134/94; TEMP 97.8; O2SAT 92
[2021-01-16] MEDS: Ondansetron 4 MG/2 ML VIAL IVP PRN (13:26)
[2021-01-16] MEDS ORDERED: Ketorolac 30 MG/ML VIAL IM PRN (16:38)
[2021-01-17] MEDS ORDERED: Vancomycin 2,000 MG/520 ML IV.SOLN IVPB SCH (03:00)
== END 2021-01-16 19:10 | disposition other institution (70) | DRG 720 ==
LOC: 3ANU 19:09 → EMEROOARM 19:09 → SUATTDRO 01-10 01:22 → 3ANU 01-10 01:45 → 2NNU 01-10 20:18 → SUATTDRO 01-11 14:00 → CDU 01-15 13:38 → 2ANU 01-16 18:22
PROVIDERS: ADMIT Internal Medicine; ATTEND Internal Medicine